=== PATIENT | male | born 1995 | race Caucasian/White ===

== ENCOUNTER 2023-05-31 12:06 | Emergency (ER) | payer OTHER ==
[2023-05-31] MEDS ORDERED: Dexamethasone 10 MG/ML VIAL ONE (13:08)
== END 2023-05-31 14:52 | disposition home or self-care (01) ==
LOC: ERS 12:06
DX: R59.0 Localized enlarged lymph nodes (principal); F17.210 Nicotine dependence, cigarettes, uncomplicated; F17.290 Nicotine dependence, other tobacco product, uncomplicated
CPT/HCPCS: 70491; 96374; J1100